=== PATIENT | male | born 1990 | race Caucasian/White ===

== ENCOUNTER 2018-01-01 19:13 | Emergency (ER) | payer OTHER ==
[2018-01-01 19:22] VITALS: BP 142/90
[2018-01-01] MEDS ORDERED: Naproxen TAB* 250 MG PO ONE (19:55)
--- NOTE | 2018-01-01 20:30 | RAD ---
HISTORY: Low back pain, trauma COMPARISONS: None VIEWS: 5 , Frontal, lateral, coned-down lateral sacral, and bilateral oblique views of the lumbar spine. FINDINGS: ALIGNMENT: There is straightening of the normal lumbar lordosis. VERTEBRAL BODIES: The vertebral body heights are normal. The interpedicular distances are normal. JOINTS: The facet joints are normal. INTERVERTEBRAL DISCS: The intervertebral disc heights are normal. SOFT TISSUE: Unremarkable. OTHER: The pelvis is unremarkable. The lung bases are clear. IMPRESSION: STRAIGHTENING OF THE LUMBAR LORDOSIS
[2018-01-01] MEDS ORDERED: Cyclobenzaprine TAB* 10 MG PO ONE (20:42)
--- NOTE | 2018-01-01 20:42 | UC ---
Back Pain HPI - HPI Summary HPI Summary: 27 y/o male presents to the urgent care c/o falling down his 5 porch steps backwards today at 1800, injury and pain to right lower back. Pt reports pain is 7/10 w/ radiation to his RT hip. he has an abrasion on his RT side of lower back. Pt denies numbness and tingling over the lower legs, saddle anesthesia, urinary or fecal incontinence, urinary symptoms, fever, SOB, chest pain, abdominal pain, N/V/. He has not taking anything to alleviate pain. - History of Current Complaint Chief Complaint: UCBackPain Stated Complaint: FALL/LOWER BACK PAIN Time Seen by Provider: 01/01/18 19:39 Hx Obtained From: Patient Onset/Duration: Sudden Onset, Lasting Hours - 3 hrs, Still Present Timing: Constant Severity Initially: Moderate Severity Currently: Moderate Pain Intensity: 7 Pain Scale Used: 0-10 Numeric Back Pain: Is Discrete @ - Rt lower back, Radiates To - RT hip Character: Sharp, Spasmodic Aggravating Factor(s): Movement, Lifting, Bending, Walking Alleviating Factor(s): Rest Associated Signs And Symptoms: Positive: Redness, Bruising - Rt lower back, Pain with Weight Bearing. Negative: Fever, Weakness, Abdominal Pain, Flank Pain , Bladder Incontinence, Bowel Incontinence, Weight Loss - Risk Factors AAA Risk Factors: Negative TAD Risk Factors: Negative Cauda Equina Risk Factors: Negative Epidural Abscess Risk Factors: Negative - Allergies/Home Medications Allergies/Adverse Reactions: Allergies Allergy/AdvReac Type Severity Reaction Status Date / Time No Known Allergies Allergy Verified 01/01/18 19:23 PMH/Surg Hx/FS Hx/Imm Hx Previously Healthy: Yes Respiratory History: Asthma - Surgical History Surgical History: None - Family History Family History: Emphysema - Social History Occupation: Employed Full-time Lives: With Family Alcohol Use: Occasionally Substance Use Type: None Smoking Status (MU): Never Smoked Tobacco Review of Systems Constitutional: Negative Skin: Bruising - RT lower back w/ abrasion s/p fall Eyes: Negative ENT: Negative Respiratory: Negative Cardiovascular: Negative Gastrointestinal: Negative Genitourinary: Negative Motor: Negative Neurovascular: Negative Musculoskeletal: Decreased ROM - lower back, Other: - Acute lower back pain s/p fall Neurological: Negative Psychological: Negative Is Patient Immunocompromised?: No All Other Systems Reviewed And Are Negative: Yes Physical Exam Triage Information Reviewed: Yes Vital Signs: Initial Vital Signs Temp 98.4 F 01/01/18 19:20 Pulse 100 01/01/18 19:20 Resp 18 01/01/18 19:20 BP 142/90 01/01/18 19:20 Pulse Ox 100 01/01/18 19:20 - Additional Comments Vital Signs Reviewed: Yes Appearance: Well-Appearing, Well-Nourished, obese male sitting in the examining table w/o any apparent distress. Eyes: Positive: Conjunctiva Clear - PERRLA, EOMI. ENT: Positive: Normal ENT inspection, Hearing grossly normal, Pharynx normal, TMs normal, Uvula midline Neck: Positive: Supple, Nontender, No Lymphadenopathy Respiratory: Positive: Chest non-tender, Lungs clear, Normal breath sounds, No respiratory distress Cardiovascular: Positive: RRR, No Murmur, Pulses Normal, Brisk Capillary Refill Abdomen Description: Positive: Nontender, No Organomegaly, Soft. Negative: CVA Tenderness (R), CVA Tenderness (L) Bowel Sounds: Positive: Present Musculoskeletal: Positive: Strength Intact, BACK: Patient walked into the urgent care room with mild limping, No antalgic, able to bear weight.RT lower back w/ mild ecchymosis and abrasion and tender to palpation the level of L5-S1 , No CVAT, no flank ecchymosis . No sacroiliac notch tenderness, No saddle anesthesia.ROM: limited due to pain, Straight Leg Raise: unable to perform due to pain. Patellar reflexes: brisk, symmetric Muscle strength lower extremities. Dorsiflexion/ plantar flexion of ankles. Heel/ toe walk. Lower extremities: Femoral, popliteal, posterior tibial, and dorsalis pedis pulses WNL. Pt refuse rectal exam Neurological: Positive: Alert, Muscle Tone Normal Psychological Exam: Normal Skin Exam: Normal Back Pain Course/Dx - Course Course Of Treatment: 27 y/o male presents to the urgent care c/o falling down his 5 porch steps backwards today at 1800, injury and pain to right lower back. Pt reports pain is 7/10 w/ radiation to his RT hip. he has an abrasion on his RT side of lower back. Pt denies numbness and tingling over the lower legs, saddle anesthesia, urinary or fecal incontinence, urinary symptoms, fever, SOB, chest pain, abdominal pain, N/V/. He has not taking anything to alleviate pain.Hx obtained. PE: Point tenderness at the level of the L5-S1 and RT side paraspinal muscle spasm at the same level w/ a abrasion about 4.0cmx 4.0cm in size on examination. Lumbosacral X-ray ordered, Impression: No acute osseous injury observed, straightening of lumbar lordosis. Pt given Naproxen PO ordered at the clinic. Given by nurse. Pt tolerated well medication pain decrease. Pt Rx Naproxen PO, flexeril PO and advised to apply ice over injury. Patient was instructed to the f/u wit orthopedic in 1 week if symptoms do not improve or worsen. Pt explaine D/C instructions. Pt's BP is elevated today advised to decrease salt in diet, monitor BP and f/u with PCP for further management.Patient understands and agrees. Patient is able to ambulate freely w/ o aid or limp. Plan of care was discussed with the patient and patient understands and agrees. All questions were answered at patient satisfaction. Pt left clinic hemodynamically stable. - Differential Dx/Diagnosis Differential Diagnosis/HQI/PQRI: Compressive Cord Syndrome, Fracture, Herniated Disc, Strain, Sprain Provider Diagnoses: 1- Acute lower back pain s/p fall. 2-Back spasm. 4-lower back abrasion. 3- Elevated BP w/o Hx of HTN Discharge - Discharge Plan Condition: Stable Disposition: HOME Prescriptions: Cyclobenzaprine TAB* [Flexeril 10 MG TAB*] 10 mg PO TID PRN #20 tab PRN Reason: Spasms - Back Naproxen Sodium [Naproxen Sodium 500 MG TAB] 500 mg PO Q8HR PRN #30 tab PRN Reason: Pain Patient Education Materials: Acute Low Back Pain (ED), Low-Sodium Diet (ED), Muscle Spasm (ED) Forms: *Work Release Referrals: Stanley Shrestha MD [Primary Care Provider] - 1 Week Reece Craft MD [Medical Doctor] - 1 Week Additional Instructions: 1- Please take Naproxen PO as directed after meals for pain. 2- Take Flexeril PO as directed for muscle spasm. Please do not drive while taking the medication. 3- Wear a back support. Avoid strenuous exercise of heavy lifting. 4- Please follow up with Orthopedic Dr or your PCP in 1 week if not improvement of symptoms, for further management. 5-Your BP is elevated today. please decrease salt in your diet, monitor BP and if it continues to be elevated please f/u with your PCP for further management
== END 2018-01-01 21:00 | disposition home or self-care (01) ==
LOC: UCEAST 19:13
DX: S30.810A Abrasion of lower back and pelvis, initial encounter (principal); W10.9XXA Fall (on) (from) unspecified stairs and steps, initial encounter; Y93.9 Activity, unspecified; Y92.008 Other place in unspecified non-institutional (private) residence as the place of occurrence of the external cause; M54.5 Low back pain; M62.830 Muscle spasm of back; R03.0 Elevated blood-pressure reading, without diagnosis of hypertension; J45.909 Unspecified asthma, uncomplicated
CPT/HCPCS: 72110; 99202; A9270-GY; G0463

== ENCOUNTER 2018-01-08 16:46 | Emergency (ER) | payer OTHER ==
[2018-01-08 17:16] VITALS: BP 147/88
--- NOTE | 2018-01-08 18:25 | UC ---
Back Pain HPI - HPI Summary HPI Summary: 27 yo WM c/o numbness on lower back from falling on steps last week with residual bruising in the area, XR of LS psin was negative when pt was here last week but denies radiculopathy down his buttock or back, denies hemiparesis or parasthesias in the limbs, or unrinary or fecal incontinence - History of Current Complaint Chief Complaint: UCBackPain Stated Complaint: BACK PAIN Time Seen by Provider: 01/08/18 17:45 Hx Obtained From: Patient Onset/Duration: Lasting Days Timing: Constant Pain Intensity: 3 Character: Dull, Aching, Throbbing Associated Signs And Symptoms: Positive: Negative - Allergies/Home Medications Allergies/Adverse Reactions: Allergies Allergy/AdvReac Type Severity Reaction Status Date / Time No Known Allergies Allergy Verified 01/08/18 17:16 PMH/Surg Hx/FS Hx/Imm Hx Previously Healthy: Yes - Surgical History Surgical History: None - Family History Family History: Emphysema - Social History Alcohol Use: Rare Substance Use Type: None Smoking Status (MU): Never Smoked Tobacco Review of Systems Constitutional: Negative Skin: Negative Eyes: Negative ENT: Negative Respiratory: Negative Cardiovascular: Negative Gastrointestinal: Negative Genitourinary: Negative Motor: Negative Neurovascular: Negative Musculoskeletal: Other: - LBP Neurological: Negative Psychological: Negative All Other Systems Reviewed And Are Negative: Yes Physical Exam Triage Information Reviewed: Yes Vital Signs: Initial Vital Signs Temp 36.9 C 01/08/18 17:12 Pulse 112 01/08/18 17:12 Resp 18 01/08/18 17:12 BP 147/88 01/08/18 17:12 Pulse Ox 99 01/08/18 17:12 Eye Exam: Normal ENT Exam: Normal Dental Exam: Normal Neck exam: Normal Neck: Positive: 1 Respiratory Exam: Normal Cardiovascular Exam: Normal Abdominal Exam: Normal Musculoskeletal: Positive: Strength Limited @, ROM Limited @, Other: - TTP, mild swelling and ecchymosis size about 5x6cm in the region of L4-5 with mild numbness W/O radiation to buttock or LE Neurological Exam: Normal Psychological Exam: Normal Skin Exam: Normal Back Pain Course/Dx - Course Course Of Treatment: contused lower back with persistent pain, can't sleep- percoccet added to pain control regimen - Differential Dx/Diagnosis Provider Diagnoses: Contusion of lower back Discharge - Discharge Plan Condition: Stable Disposition: HOME Prescriptions: oxyCODONE/Acetamin 5/325 MG* [Percocet 5/325 TAB*] 1 tab PO Q6H PRN 3 Days #12 tab MDD 4 PRN Reason: Pain Patient Education Materials: Contusion in Adults (ED) Additional Instructions: follow up with neurosurgery
== END 2018-01-08 18:46 | disposition home or self-care (01) ==
LOC: UCEAST 16:46
DX: S30.0XXA Contusion of lower back and pelvis, initial encounter (principal); W10.9XXA Fall (on) (from) unspecified stairs and steps, initial encounter; Y93.9 Activity, unspecified; Y92.9 Unspecified place or not applicable
CPT/HCPCS: 99212; G0463

== ENCOUNTER 2018-08-28 09:25 | Emergency (ER) | payer OTHER ==
[2018-08-28 09:40] VITALS: BP 150/86
--- NOTE | 2018-08-28 10:15 | UC ---
Respiratory Complaint HPI - HPI Summary HPI Summary: started with ST and nasal congestion 4 days ago, has been managing with OTC cold med. last night started coughing and this am coughed up yellowis brown phlegm and chest potts - History of Current Complaint Chief Complaint: UCRespiratory Stated Complaint: SORE THROAT,FEVER Time Seen by Provider: 08/28/18 09:34 Hx Obtained From: Patient Onset/Duration: Gradual Onset Timing: Constant Severity Initially: Mild Severity Currently: Mild Pain Intensity: 3 Character: Cough: Productive Aggravating Factors: Deep Breaths Associated Signs And Symptoms: Positive: Nasal Congestion. Negative: Wheezing, Hemoptysis - Allergies/Home Medications Allergies/Adverse Reactions: Allergies Allergy/AdvReac Type Severity Reaction Status Date / Time No Known Allergies Allergy Verified 08/28/18 09:40 Home Medications: Home Medications Dextromethorphan Hb/Doxylamine [Night Time Cough Liquid] 1 liq PO BEDTIME PRN [History Confirmed 08/28/18] Ibuprofen TAB* [Advil TAB*] 400 mg PO Q6H PRN 08/28/18 [History Confirmed ] guaiFENesin [Mucinex] 600 mg PO BID PRN 08/28/18 [History Confirmed 08/28/18] PMH/Surg Hx/FS Hx/Imm Hx Previously Healthy: Yes - Surgical History Surgical History: Yes Surgery Procedure, Year, and Place: tonsillectomy - Family History Known Family History: Positive: None Negative: Diabetes, Respiratory Disease Family History: Emphysema - Social History Occupation: Employed Full-time - cook Lives: With Family Alcohol Use: Rare Substance Use Type: None Smoking Status (MU): Never Smoked Tobacco Review of Systems Constitutional: Negative Skin: Negative Eyes: Negative ENT: Sore Throat, Sinus Congestion Respiratory: Cough Cardiovascular: Negative Gastrointestinal: Negative Neurological: Negative Psychological: Negative Is Patient Immunocompromised?: No All Other Systems Reviewed And Are Negative: Yes Physical Exam Triage Information Reviewed: Yes Appearance: Well-Appearing, No Pain Distress, Well-Nourished Vital Signs: Initial Vital Signs Temp 98.6 F 08/28/18 09:36 Pulse 97 08/28/18 09:36 Resp 16 08/28/18 09:36 BP 150/86 08/28/18 09:36 Pulse Ox 100 08/28/18 09:36 Vital Signs Reviewed: Yes Eyes: Positive: Conjunctiva Clear ENT: Positive: Pharynx normal, Nasal congestion Neck exam: Normal Neck: Positive: No Lymphadenopathy Respiratory: Positive: No respiratory distress, Rhonchi Cardiovascular Exam: Normal Psychological Exam: Normal Skin Exam: Normal UC Diagnostic Evaluation - Laboratory O2 Sat by Pulse Oximetry: 100 Respiratory Course/Dx - Differential Dx/Diagnosis Differential Diagnosis/HQI/PQRI: Bronchitis, Influenza, Sinusitis Provider Diagnoses: bronchitis Discharge - Sign-Out/Discharge Documenting (check all that apply): Patient Departure All imaging exams completed and their final reports reviewed: No Studies - Discharge Plan Condition: Good Disposition: HOME Prescriptions: Azithromycin TAB* [Zithromax TAB (Z-KAYY) 250 mg #6 tabs] 2 tab PO .TODAY, THEN 1 DAILY #1 kayy Patient Education Materials: Acute Bronchitis (ED) Referrals: Stanley Shrestha MD [Primary Care Provider] - 2 Days (if no better) Additional Instructions: drink plenty of fluids and rest use ibuprofen as directed for pain and fever start antibiotic as directed - Billing Disposition and Condition Condition: GOOD Disposition: Home
== END 2018-08-28 10:25 | disposition home or self-care (01) ==
LOC: UCEAST 09:25
DX: J40 Bronchitis, not specified as acute or chronic (principal)
CPT/HCPCS: 87651; 99212; G0463

== ENCOUNTER 2019-01-07 15:25 | Emergency (ER) | payer OTHER ==
--- NOTE | 2019-01-07 15:33 | UC ---
Skin Complaint HPI - HPI Summary HPI Summary: 28 yo male presents with lesion to LLQ abdomen. He tells me that about a week ago he noticed a small red bump on his skin in this area that was mildly painful. He tried popping it, but nothing happened. Since that time has gotten larger and has redness surrounding it. Yesterday was draining green/white purulent matter. He has not been bandaging the area or applying any creams. Denies injury. Denies hx of MRSA. No fever or chills. - History of Current Complaint Chief Complaint: UCSkin Time Seen by Provider: 01/07/19 15:33 Stated Complaint: SKIN COMPLAINT Hx Obtained From: Patient Onset/Duration: Gradual Onset Onset Severity: Mild Current Severity: Mild Pain Intensity: 3 Pain Scale Used: 0-10 Numeric - Allergy/Home Medications Allergies/Adverse Reactions: Allergies Allergy/AdvReac Type Severity Reaction Status Date / Time No Known Allergies Allergy Verified 01/07/19 15:38 PMH/Surg Hx/FS Hx/Imm Hx - Additional Past Medical History Additional PMH: None - Surgical History Surgical History: Yes Surgery Procedure, Year, and Place: tonsillectomy - Family History Known Family History: Positive: Respiratory Disease Negative: Diabetes Family History: Emphysema - Social History Lives: With Family Alcohol Use: Rare Substance Use Type: None Smoking Status (MU): Never Smoked Tobacco Review of Systems All Other Systems Reviewed And Are Negative: Yes Constitutional: Positive: Negative Skin: Positive: Other - Abscess skin LLQ abdomen Respiratory: Positive: Negative Cardiovascular: Positive: Negative Neurovascular: Positive: Negative Neurological: Positive: Negative Psychological: Positive: Negative Physical Exam - Summary Physical Exam Summary: GENERAL: NAD. WDWN. No pain distress. SKIN: LLQ skin abdomen with 1.0cm central healing abscess scabbed with 2.5cm of surrounding erythema and mild warmth. No active drainage/bleeding or streaking. NECK: Supple. Nontender. No lymphadenopathy. CHEST: No accessory muscle use. Breathing comfortably and in no distress. CV: Pulses intact. Cap refill <2seconds NEURO: Alert. PSYCH: Age appropriate behavior. Triage Information Reviewed: Yes Vital Signs: Vital Signs: Temp Pulse Resp BP Pulse Ox 99.6 F 103 18 150/86 97 01/07/19 15:32 01/07/19 15:32 01/07/19 15:32 01/07/19 15:32 01/07/19 15:32 Vital Signs Reviewed: Yes Course/Dx - Course Course Of Treatment: Skin abscess of LLQ abdomen. Appears to have drained well already. No purulent matter able to be expressed today. Will start him with Bactrim and have him bandage the area with a band-aid or OTC dressing until well healed. If this area becomes indurated, enlarged, or to a "head" advised to return to have it drained. - Diagnoses Provider Diagnosis: Left lower quadrant abdominal abscess Discharge - Sign-Out/Discharge Documenting (check all that apply): Patient Departure All imaging exams completed and their final reports reviewed: No Studies - Discharge Plan Condition: Stable Disposition: HOME Prescriptions: Sulfamethox/Trimethoprim DS* [Bactrim DS 800/160 TAB*] 1 tab PO BID #14 tab Patient Education Materials: Abscess (ED) Referrals: Eddie Diaz DO [Primary Care Provider] - Additional Instructions: If you develop a fever, shortness of breath, chest pain, new or worsening symptoms - please call your PCP or go to the ED. Your blood pressure was high at todays visit. Please see your primary provider within 4 weeks for recheck and re-evaluation. 1) Apply a warm compress to the abscess and keep it covered until well healed 2) They may come to a "head" similar to a large pimple/zit - if this happens, please return to have it drained - Billing Disposition and Condition Condition: STABLE Disposition: Home
[2019-01-07 15:38] VITALS: BP 150/86
== END 2019-01-07 15:46 | disposition home or self-care (01) ==
LOC: UCEAST 15:25
DX: L02.211 Cutaneous abscess of abdominal wall (principal)
CPT/HCPCS: 99212; G0463

== ENCOUNTER 2019-08-01 07:52 | Day surgery (SDC) | payer OTHER ==
--- NOTE | 2019-07-26 09:26 | HP ---
PREOPERATIVE HISTORY AND PHYSICAL: DATE OF ADMISSION/SURGERY: 08/01/19 DATE OF OFFICE VISIT/ENCOUNTER: 07/24/19 ATTENDING SURGEON: Suyapa Correa MD.* (DICTATED BY ROSANGELA POLO) PROCEDURE: Right wrist carpal tunnel release. HISTORY OF PRESENT ILLNESS: This is a 29-year-old male who complains of numbness and tingling in his right hand primarily involving the median nerve distribution. It bothers him a lot at nighttime, especially if he lies on his right arm. He denies any injury. Symptoms have been ongoing for over a year and they have been progressively worsening. 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 This is his dominant hand. A recent EMG/nerve conduction study showed moderately severe carpal tunnel syndrome on the right. He would like to proceed with surgical intervention at this time. PAST MEDICAL HISTORY: Unremarkable. PAST SURGICAL HISTORY: 1. Tonsillectomy, adenoidectomy. 2. Ear tube placement. CURRENT MEDICATIONS: None. ALLERGIES: No known drug allergies. FAMILY MEDICAL HISTORY: Noncontributory. SOCIAL HISTORY: The patient is employed as a cook at [employer]. He denies tobacco use and recreational drug use. He drinks alcohol on occasions. REVIEW OF SYSTEMS: Negative for general, cephalic, cardiovascular, respiratory , GI, , other musculoskeletal, integumentary, endocrine, neurologic and hematologic symptoms. Infectious Disease: Negative for history of MRSA, hepatitis C, HIV. PHYSICAL EXAMINATION GENERAL: A well-developed, well-nourished 29-year-old male, in no acute distress. VITAL SIGNS: Height 6 feet tall, weight 290 pounds. Pulse rate 95, blood pressure 142/78. HEENT: Normocephalic, atraumatic. Pupils are equal, round, and reactive to light and accommodation. Extraocular movements are intact. Throat is clear. NECK: Supple. No palpable lymph nodes. PULMONARY: Lungs are clear to auscultation bilaterally. No wheezes, rales, or rhonchi. CARDIOVASCULAR: Regular rate and rhythm, S1 and S2. No murmurs, rubs, or gallops. No edema. ABDOMEN: Positive bowel sounds, soft, nontender. NEUROLOGIC: Alert and oriented x3. Cranial nerves II through XII are intact. MUSCULOSKELETAL: On exam of his right upper extremity, there is no visible muscle wasting in his right hand. He has no weakness with thumb adduction or finger adduction. He has a positive Tinel sign at the median nerve of the wrist and a positive median nerve compression test. He has good range of motion of his neck with minimal pain and no exacerbation of his symptoms. Full range of motion of the wrist on the right, and sensation is intact to light touch throughout the hand. DIAGNOSTIC STUDIES: EMG/nerve conduction on the right upper extremity shows moderately severe carpal tunnel syndrome. PLAN: The patient is scheduled to undergo a right wrist carpal tunnel release with Dr. Correa on 08/01/19. He will return to the office 10 days postop for followup and suture removal. A prescription for tramadol was e-scribed to the patient's pharmacy for postoperative pain management. ROSANGELA POLO [id number]/[facility] #: [id number] MTDTomás
[2019-08-01] MEDS ORDERED: Famotidine IV* 10 MG/ML 2 ML (20 mg) ONE (08:04)
[2019-08-01] MEDS ORDERED: Buffered Lidocaine 1% SYRIN* 1 ML/SYRINGE INTRADERM ONE (08:07)
[2019-08-01] MEDS ORDERED: Midazolam* 1 MG/ML 5 ML VIAL (5 MG) ONE (08:35)
[2019-08-01] MEDS ORDERED: Acetaminophen TAB* 325 MG PO PRN (08:52)
[2019-08-01] MEDS ORDERED: Lidocaine 1% INJ* 10 MG/ML 30 ML SDV ONE (08:56)
[2019-08-01] MEDS ORDERED: Propofol* 10 MG/ML 20 ML BTL ONE (09:07)
[2019-08-01] MEDS ORDERED: Ondansetron INJ* 2 MG/ML VIAL ONE (09:07)
[2019-08-01] MEDS ORDERED: Ketorolac INJ* 30 MG/ML 1 ML VIAL ONE (09:19)
[2019-08-01 09:40] VITALS: BP 130/82
--- NOTE | 2019-08-01 21:05 | OP ---
DATE OF OPERATION: 08/01/19 [facility] DATE OF : 88 SURGEON: Suyapa Correa MD COLLEGE DEAN: ROSANGELA Giron ANESTHESIA: Local MAC. PRE-OP DIAGNOSIS: Right carpal tunnel syndrome. POST-OP DIAGNOSIS: Right carpal tunnel syndrome. OPERATIVE PROCEDURE: Right carpal tunnel release. ESTIMATED BLOOD LOSS: Zero. TOURNIQUET TIME: Approximately 10 minutes. INDICATIONS FOR PROCEDURE: Reece is a 29-year-old male who has numbness and tingling in the median nerve distribution of his right hand. He presents for right carpal tunnel release. DESCRIPTION OF PROCEDURE: The patient was brought to the operating room, was given a sedation anesthetic and a local infiltration of 10 cc of 1% plain lidocaine in the palm of his right hand. The skin of his right hand and forearm was prepped and draped in the usual sterile fashion. The hand and forearm were exsanguinated and the tourniquet elevated to 250 mmHg. A longitudinal incision was made in the palm in line with the ring finger. We dissected through the subcutaneous tissue down to the transverse carpal ligament. The ligament was divided sharply with a knife and then more proximally with the scissors. The nerve was dissected free from the surrounding tissue. There was an area of moderate compression at the mid portion of the ligament. The wound was irrigated and skin edges reapproximated with 4-0 nylon suture. The wound was dressed with Xeroform, 4x4, Webril, and an Wild wrap. The patient tolerated the procedure well and was brought to the recovery room in good condition. [id number]/[facility] #: [id number] [facility]
--- NOTE | 2019-08-01 21:58 | OP ---
DATE OF OPERATION: 08/01/19 [facility] DATE OF : 88 SURGEON: Suyapa Correa MD CUSTOMER SERVICE DRIVER: ROSANGELA Giron ANESTHESIA: Local MAC. PRE-OP DIAGNOSIS: Right carpal tunnel syndrome. POST-OP DIAGNOSIS: Right carpal tunnel syndrome. OPERATIVE PROCEDURE: Right carpal tunnel release. ESTIMATED BLOOD LOSS: Zero. TOURNIQUET TIME: Approximately 10 minutes. INDICATIONS FOR PROCEDURE: Reece is a 29-year-old male with numbness and tingling in the median nerve distribution of his right hand. He presents for right carpal tunnel release. DESCRIPTION OF PROCEDURE: The patient was brought to the operating room, was given a sedation anesthetic and a local infiltration of 10 cc of 1% plain lidocaine in the palm of his right hand. The skin of his right hand and forearm was prepped and draped in the usual sterile fashion. The hand and forearm were exsanguinated and the tourniquet elevated to 250 mmHg. A longitudinal incision was made in the palm in line with the ring finger. We dissected through the subcutaneous tissue down to the transverse carpal ligament. The ligament was divided sharply with a knife and then more proximally with the scissors. The nerve was dissected free from the surrounding tissue and there was an area of moderate compression at the mid portion of the ligament. The wound was irrigated and the skin edges were reapproximated with 4-0 nylon suture. The wound was dressed with Xeroform, 4x4 , Webril, and Wild wrap. The patient tolerated the procedure well and was brought to the recovery room in good condition. [id number]/[facility] #: [id number] [facility]ITALTomás
== END 2019-08-01 10:00 | disposition home or self-care (01) ==
LOC: OREAST 07:52
PROVIDERS: ATTEND Orthopaedic Surgery
DX: G56.01 Carpal tunnel syndrome, right upper limb (principal)
CPT/HCPCS: J1885; J2250; J2405; J2704